=== PATIENT | male | born 1965 ===

== ENCOUNTER 2025-07-12 17:27 | Emergency (ER) | payer MEDICARE ==
[~2025-07-12] VITALS: Ht 160 cm; Wt 56.8 kg
[2025-07-12 17:31] VITALS: TEMP 97.9
[2025-07-12] MEDS: ACETAMINOPHEN 325 MG TABLET PO ONE (17:49)
[2025-07-12 17:55] LABS: PLATELET COUNT (AUTO) 303 K/uL (150-450); RED BLOOD CELL COUNT(AUTO) 4.11 MIL/uL (4.50-5.90); RED CELL DISTRIBUTION WIDTH 12.7 % (11.5-14.5); WHITE BLOOD COUNT (AUTO) 9.3 K/uL (4.5-11.0)
[2025-07-12 18:03] LABS: CALCIUM, TOTAL 8.8 mg/dL (8.8-10.5); CREATININE 1.00 mg/dL (0.60-1.30); GLOMERULAR FILTR. RATE CALC > 60 mL/min (>60); GLUCOSE,RANDOM 112 mg/dL (70-110); SODIUM SERUM 143 mmol/L (136-145); UREA NITROGEN, BLOOD 17 mg/dL (7-18)
[2025-07-12 18:08] LABS: ASPARTATE AMINOTRANSFERASE 17.0 U/L (15-37); TOTAL PROTEIN, SERUM 7.0 g/dL (6.4-8.2)
[2025-07-12] MEDS ORDERED: LEVO750T68 PO (18:36)
[2025-07-12] MEDS ORDERED: ACET-2247 PO (18:36)
[2025-07-12] MEDS ORDERED: IBUP-1492 PO (18:36)
[2025-07-12 18:43] VITALS: BP 153/70; PULSE 101; RESP 18; O2SAT 97
[2025-07-12] MEDS: LIDOCAINE 2% 6 ML JELLY TP ONE (19:00)
[2025-07-12] MEDS ORDERED: TAMS0.4C94 PO (19:00)
[2025-07-12] MEDS: KETOROLAC TROMETHAMINE 30 MG/ML VIAL IM ONE (19:06)
[2025-07-12] MEDS: TAMSULOSIN HCL 0.4 MG CAPSULE PO ONE (19:06)
== END 2025-07-12 19:21 | disposition home or self-care (01) ==
LOC: EMS 17:27
DX: R30.0 Dysuria (principal); R33.9 Retention of urine, unspecified; N32.89 Other specified disorders of bladder; F17.210 Nicotine dependence, cigarettes, uncomplicated; F15.90 Other stimulant use, unspecified, uncomplicated; Z88.0 Allergy status to penicillin
CPT/HCPCS: 99284; 80048; 80076; 83690; 85025; 36415; 96372; J1885